=== PATIENT | female | born 1945 | race Caucasian/White ===

== ENCOUNTER 2020-03-10 08:19 | Outpatient (CLI) | payer MEDICARE, OTHER ==
[2020-03-10 16:19] LABS: BASOPHILS % (AUTO) 0.6 %; EOSINOPHILS # (AUTO) 0.1 10^3/uL (0.0-0.7); EOSINOPHILS % (AUTO) 1.9 %; HGB - HEMOGLOBIN 14.2 g/dL (12.0-16.0); LYMPHOCYTES # (AUTO) 1.5 10^3/uL (1.5-3.5); LYMPHOCYTES % (AUTO) 24.4 %; MEAN CORPUSCULAR HEMOGLOBIN 32.6 pg (27.0-31.0); MEAN CORPUSCULAR VOLUME 101.8 fL (81.0-99.0); MONOCYTES # (AUTO) 0.7 10^3/uL (0.0-1.0); MONOCYTES % (AUTO) 10.5 %; NEUTROPHILS # (AUTO) 3.9 10^3/uL (1.5-6.6); NEUTROPHILS % (AUTO) 62.3 %; PLT - PLATELET COUNT 295 10^3/uL (130-450); RED BLOOD COUNT 4.36 10^6/uL (4.20-5.40); RED CELL DISTRIBUTION WIDTH 13.3 % (12.0-15.0); WHITE BLOOD COUNT 6.3 x10^3/uL (4.8-10.8)
[2020-03-10 16:32] LABS: ALBUMIN 4.1 g/dL (3.2-5.5); ALBUMIN/GLOBULIN RATIO 1.2 (1.0-2.2); BILIRUBIN,TOTAL 0.7 mg/dL (0.2-1.0); CALCIUM 9.4 mg/dL (8.5-10.3); CREATININE 0.8 mg/dL (0.4-1.0); TOTAL PROTEIN 7.4 g/dL (6.7-8.2)
[2020-03-10 17:32] LABS: FREE T4 (FREE THYROXINE) 0.81 ng/dL (0.58-1.64)
== END 2020-03-10 08:20 | disposition home or self-care (01) ==
LOC: LAB.S 08:19
PROVIDERS: ATTEND Registered Nurse
DX: I73.9 Peripheral vascular disease, unspecified (principal); K21.9 Gastro-esophageal reflux disease without esophagitis; I10 Essential (primary) hypertension
CPT/HCPCS: 36415; 80053; 84439; 84443; 85025

== ENCOUNTER 2020-04-19 08:03 | Outpatient (CLI) | payer MEDICARE, OTHER ==
[2020-04-19 15:05] LABS: CREATININE,URINE 223.1 mg/dL; MICROALBUM/CREATININE RATIO,UR 2.2 ug/mg (<30.0); MICROALBUMIN,URINE 0.5 mg/dL (0-300.0)
[2020-04-19 15:28] LABS: CREATININE 0.8 mg/dL (0.4-1.0)
[2020-04-19 20:26] LABS: HEMOGLOBIN A1c% 5.6 % (4.27-6.07)
[2020-04-20 11:12] LABS: HEPATITIS C ANTIBODY NON-REACTIVE (NON-REACTIVE)
== END 2020-04-19 08:04 | disposition home or self-care (01) ==
LOC: LAB.S 08:03
PROVIDERS: ATTEND Registered Nurse
DX: Z12.11 Encounter for screening for malignant neoplasm of colon (principal); E03.9 Hypothyroidism, unspecified; R73.9 Hyperglycemia, unspecified; Z11.59 Encounter for screening for other viral diseases; Z12.31 Encounter for screening mammogram for malignant neoplasm of breast
CPT/HCPCS: 36415; 80048; 82043; 82570; 83036; 84443; 86803

== ENCOUNTER 2020-08-15 12:10 | Outpatient (CLI) | payer MEDICARE, OTHER ==
--- NOTE | 2020-08-24 09:28 | Mammography Report ---
BILATERAL DIGITAL SCREENING MAMMOGRAM 3D/2D WITH AUGMENTATION: 08/15/2020 CLINICAL: Routine screening. Routine screening. Personal history of right breast cancer. No prior exams were available for comparison. There are scattered fibroglandular elements in both br easts. Bilateral breast implants are intact. There are benign calcifications in both breasts. No significant masses, calcifications, or other findings are seen in either breast. IMPRESSION: BENIGN There is no mammographic evidence of malignancy. A 1 year screening mammogram is recommended. This exam was interpreted at Station ID: [id number]. NOTE: For mammograms, a report in lay terms will be sent to the patient. Approximately 15% of breast malignancies will not be visualized mammographically. In the management of a palpable breast mass, a negative mammogram must not discourage biopsy of a clinically suspicious lesion. Electronically Signed By: Antonio Land M.D. [facility]:08/24/2020 08:56:31 ACR BI-RADS Category 2: Benign Finding(s) 3342F PARENCHYMAL PATTERN: (A) - The breast(s) demonstrate(s) scattered fibroglandular densities. BI-RADS CATEGORY: (2) - 2 RECOMMENDATION: (ANNUAL) - Recommend routine annual screening mammography. [id number] 1 year screening LATERALITY: (B)
== END 2020-08-15 12:11 | disposition home or self-care (01) ==
LOC: DI.S 12:10
PROVIDERS: ATTEND Registered Nurse
DX: Z12.31 Encounter for screening mammogram for malignant neoplasm of breast (principal); Z85.3 Personal history of malignant neoplasm of breast

== ENCOUNTER 2021-03-31 07:49 | Outpatient (CLI) | payer MEDICARE, OTHER ==
[2021-03-31 15:41] LABS: BASOPHILS % (AUTO) 0.6 %; EOSINOPHILS # (AUTO) 0.1 10^3/uL (0.0-0.7); HCT - HEMATOCRIT 44.3 % (37.0-47.0); HGB - HEMOGLOBIN 14.4 g/dL (12.0-16.0); LYMPHOCYTES # (AUTO) 1.5 10^3/uL (1.5-3.5); LYMPHOCYTES % (AUTO) 30.6 %; MEAN CORPUSCULAR HEMOGLOBIN 33.1 pg (27.0-31.0); MEAN CORPUSCULAR HGB CONC 32.5 g/dL (32.0-36.0); MEAN CORPUSCULAR VOLUME 101.8 fL (81.0-99.0); MEAN PLATELET VOLUME 8.8 fL (7.9-10.8); MONOCYTES # (AUTO) 0.6 10^3/uL (0.0-1.0); MONOCYTES % (AUTO) 11.1 %; NEUTROPHILS # (AUTO) 2.7 10^3/uL (1.5-6.6); NEUTROPHILS % (AUTO) 55.3 %; PLT - PLATELET COUNT 274 10^3/uL (130-450); RED BLOOD COUNT 4.35 10^6/uL (4.20-5.40); WHITE BLOOD COUNT 4.9 x10^3/uL (4.8-10.8)
[2021-03-31 16:01] LABS: ALBUMIN 4.3 g/dL (3.2-5.5); ALBUMIN/GLOBULIN RATIO 1.7 (1.0-2.2); ALKALINE PHOSPHATASE 61 IU/L (42-121); ALT ALANINE AMINOTRANSFERASE 17 IU/L (10-60); AST ASPARTATE AMINOTRANSFERASE 15 IU/L (10-42); BILIRUBIN,TOTAL 0.7 mg/dL (0.2-1.0); BUN - BLOOD UREA NITROGEN 16 mg/dL (6-20); CALCIUM 9.3 mg/dL (8.5-10.3); CARBON DIOXIDE - CO2 29 mmol/L (21-32); CHLORIDE 103 mmol/L (101-111); CHOL/HDL RATIO 3.9 (<4.4); CHOLESTEROL 237 mg/dL; CREATININE 0.8 mg/dL (0.4-1.0); GFR - MDRD 70 (>89); GLUCOSE 135 mg/dL (70-100); HDL CHOLESTEROL 61 mg/dL; LDL CHOLESTEROL,CALCULATED 129 mg/dL; LDL/HDL RATIO 2.1 (<4.4); SODIUM 142 mmol/L (135-145); TOTAL PROTEIN 6.9 g/dL (6.7-8.2); TRIGLYCERIDES 235 mg/dL; VLDL CHOLESTEROL 47 mg/dL
[2021-03-31 16:08] LABS: THYROID STIMULATING HORMONE 1.14 uIU/mL (0.34-5.60)
== END 2021-03-31 07:50 | disposition home or self-care (01) ==
LOC: LAB.S 07:49
PROVIDERS: ATTEND Registered Nurse
DX: R55 Syncope and collapse (principal); R73.9 Hyperglycemia, unspecified; R00.2 Palpitations; I10 Essential (primary) hypertension; E03.9 Hypothyroidism, unspecified
CPT/HCPCS: 36415; 80053; 80061; 83721; 84443; 85025

== ENCOUNTER 2021-04-14 09:38 | Outpatient (CLI) | payer MEDICARE, OTHER ==
--- NOTE | 2021-04-14 12:43 | XRAY Report ---
PROCEDURE: Chest 2 View X-Ray INDICATIONS: NEAR SYNCOPE, PALPITATIONS, RECURRENT TECHNIQUE: 2 view(s) of the chest. COMPARISON: None. FINDINGS: Surgical changes and devices: None. Lungs and pleura: No pleural effusions or pneumothorax. Lungs are clear. Mediastinum: Mediastinal contours are normal. Heart size is normal. Bones and chest wall: No suspicious bony abnormalities. Soft tissues appear unremarkable. IMPRESSION: No acute cardiopulmonary disease. Reviewed by: Ricki Brown MD on 04/14/2021 12:42 PM PST Approved by: Ricki Brown MD on 04/14/2021 12:42 PM [facility] Station ID: [id number]
== END 2021-04-14 09:39 | disposition home or self-care (01) ==
LOC: DI.S 09:38
PROVIDERS: ATTEND Registered Nurse
DX: R55 Syncope and collapse (principal); R00.2 Palpitations

== ENCOUNTER 2021-07-19 09:05 | Outpatient (CLI) | payer MEDICARE ==
[2021-07-19 16:22] LABS: ALKALINE PHOSPHATASE 65 IU/L (42-121); ALT ALANINE AMINOTRANSFERASE 18 IU/L (10-60); AST ASPARTATE AMINOTRANSFERASE 16 IU/L (10-42); BILIRUBIN,TOTAL 0.6 mg/dL (0.2-1.0); CHOL/HDL RATIO 2.4 (<4.4); CHOLESTEROL 157 mg/dL; HDL CHOLESTEROL 65 mg/dL; LDL CHOLESTEROL,CALCULATED 53 mg/dL; LDL/HDL RATIO 0.8 (<4.4); TOTAL PROTEIN 6.6 g/dL (6.7-8.2); TRIGLYCERIDES 193 mg/dL; VLDL CHOLESTEROL 39 mg/dL
[2021-07-19 16:29] LABS: BILIRUBIN,DIRECT < 0.1 mg/dL (0.1-0.5)
== END 2021-07-19 09:06 | disposition home or self-care (01) ==
LOC: LAB.S 09:05
PROVIDERS: ATTEND Internal Medicine Cardiovascular Disease
DX: E78.5 Hyperlipidemia, unspecified (principal)
CPT/HCPCS: 36415; 80061; 80076; 83721

== ENCOUNTER 2021-08-13 09:24 | Outpatient (CLI) | payer MEDICARE | END 2021-08-13 09:25 | disposition home or self-care (01) | LOC: LAB.S 09:24 | PROVIDERS: ATTEND Internal Medicine Cardiovascular Disease | DX: Z53.9 Procedure and treatment not carried out, unspecified reason (principal) ==

== ENCOUNTER 2021-08-15 08:17 | Outpatient (CLI) | payer MEDICARE ==
[2021-08-15 15:48] LABS: CHOL/HDL RATIO 2.7 (<4.4); CHOLESTEROL 164 mg/dL; HDL CHOLESTEROL 61 mg/dL; LDL CHOLESTEROL,CALCULATED 66 mg/dL; LDL/HDL RATIO 1.1 (<4.4); TRIGLYCERIDES 186 mg/dL; VLDL CHOLESTEROL 37 mg/dL
== END 2021-08-15 08:18 | disposition home or self-care (01) ==
LOC: LAB.S 08:17
PROVIDERS: ATTEND Internal Medicine Cardiovascular Disease
DX: E78.5 Hyperlipidemia, unspecified (principal)
CPT/HCPCS: 36415; 80061; 83721

== ENCOUNTER 2021-09-22 07:55 | Outpatient (CLI) | payer MEDICARE ==
[2021-09-22 15:48] LABS: CALCIUM 9.2 mg/dL (8.5-10.3); CREATININE 0.7 mg/dL (0.4-1.0); POTASSIUM 4.5 mmol/L (3.5-5.0)
== END 2021-09-22 07:56 | disposition home or self-care (01) ==
LOC: LAB.S 07:55
PROVIDERS: ATTEND Physician Assistant Medical
DX: I10 Essential (primary) hypertension (principal)
CPT/HCPCS: 36415; 80048

== ENCOUNTER 2022-04-06 09:36 | Outpatient (CLI) | payer MEDICARE ==
[2022-04-06 15:09] LABS: CALCIUM 8.9 mg/dL (8.5-10.3); CREATININE 0.7 mg/dL (0.4-1.0); POTASSIUM 4.1 mmol/L (3.5-5.0)
== END 2022-04-06 09:37 | disposition home or self-care (01) ==
LOC: LAB.S 09:36
PROVIDERS: ATTEND Internal Medicine Cardiovascular Disease
DX: I10 Essential (primary) hypertension (principal)
CPT/HCPCS: 36415; 80048

== ENCOUNTER 2022-05-31 09:04 | Outpatient (CLI) | payer MEDICARE ==
[2022-05-31 17:01] LABS: BASOPHILS # (AUTO) 0.1 10^3/uL (0.0-0.1); BASOPHILS % (AUTO) 0.8 %; EOSINOPHILS # (AUTO) 0.1 10^3/uL (0.0-0.7); EOSINOPHILS % (AUTO) 1.2 %; HCT - HEMATOCRIT 41.6 % (37.0-47.0); HGB - HEMOGLOBIN 13.3 g/dL (12.0-16.0); LYMPHOCYTES # (AUTO) 1.7 10^3/uL (1.5-3.5); MEAN CORPUSCULAR HEMOGLOBIN 32.4 pg (27.0-31.0); MEAN CORPUSCULAR VOLUME 101.2 fL (81.0-99.0); MONOCYTES # (AUTO) 0.7 10^3/uL (0.0-1.0); MONOCYTES % (AUTO) 11.1 %; NEUTROPHILS # (AUTO) 3.4 10^3/uL (1.5-6.6); NEUTROPHILS % (AUTO) 57.6 %; PLT - PLATELET COUNT 257 10^3/uL (130-450); RED BLOOD COUNT 4.11 10^6/uL (4.20-5.40); RED CELL DISTRIBUTION WIDTH 13.1 % (12.0-15.0); WHITE BLOOD COUNT 5.9 x10^3/uL (4.8-10.8)
[2022-05-31 17:17] LABS: ALBUMIN 3.8 g/dL (3.2-5.5); ALBUMIN/GLOBULIN RATIO 1.4 (1.0-2.2); BILIRUBIN,TOTAL 0.5 mg/dL (0.2-1.0); CALCIUM 8.9 mg/dL (8.5-10.3); CREATININE 0.7 mg/dL (0.4-1.0); POTASSIUM 4.3 mmol/L (3.5-5.0); TOTAL PROTEIN 6.5 g/dL (6.7-8.2)
[2022-05-31 17:34] LABS: THYROID STIMULATING HORMONE 1.06 uIU/mL (0.34-5.60)
== END 2022-05-31 09:05 | disposition home or self-care (01) ==
LOC: LAB.S 09:04
PROVIDERS: ATTEND Registered Nurse
DX: I10 Essential (primary) hypertension (principal); R73.9 Hyperglycemia, unspecified; E03.9 Hypothyroidism, unspecified
CPT/HCPCS: 36415; 80053; 84443; 85025

== ENCOUNTER 2022-09-15 07:21 | Day surgery (SDC) | payer MEDICARE ==
[2022-09-15] MEDS ORDERED: LACTATED RINGERS 1,000 ML IV ONE ×2 (07:25→10:07)
--- NOTE | 2022-09-15 08:22 | ANESTHESIA ---
Pre-Anesthesia VS, & Labs - Diagnosis hx of ulcer, change in bowel habits - Procedure EGD, colonoscopy Vital Signs: Temp Pulse Resp BP Pulse Ox O2 Flow Rate 36.3 C L 94 16 134/79 H 92 09/15/22 07:34 09/15/22 07:34 09/15/22 07:34 09/15/22 07:34 09/15/22 07:34 Height: 5 ft 7 in Weight (kg): 65.7 kg Body Mass Index: 22.6 BMI Classification: Normal - NPO >8 hours - Is Patient ?: No - Lab Results Current Lab Results: Laboratory Tests 09/15/22 07:43: POC Whole Bld Glucose 117 H Home Medications and Allergies Home Medications: Ambulatory Orders Aspirin [[place] Aspirin] 81 mg PO DAILY 09/14/22 Atorvastatin [Lipitor] 20 mg ORAL DAILY 09/14/22 Carvedilol [Coreg] 12.5 mg PO DAILY 09/14/22 Levothyroxine [Synthroid] 112 mcg PO DAILY 09/14/22 Omeprazole Magnesium 20 mg PO DAILY 09/14/22 Valsartan [Diovan] 80 mg PO DAILY 09/14/22 amLODIPine [Norvasc] 5 mg PO DAILY 09/14/22 metFORMIN [Glucophage] 500 mg PO DAILY 09/14/22 Aspirin [[place] Aspirin] 81 mg PO DAILY 09/14/22 Atorvastatin [Lipitor] 20 mg ORAL DAILY 09/14/22 Carvedilol [Coreg] 12.5 mg PO DAILY 09/14/22 Levothyroxine [Synthroid] 112 mcg PO DAILY 09/14/22 Omeprazole Magnesium 20 mg PO DAILY 09/14/22 Valsartan [Diovan] 80 mg PO DAILY 09/14/22 amLODIPine [Norvasc] 5 mg PO DAILY 09/14/22 metFORMIN [Glucophage] 500 mg PO DAILY 09/14/22 Allergies/Adverse Reactions: Allergies Allergy/AdvReac Type Severity Reaction Status Date / Time celecoxib [From Celebrex] Allergy Hives Verified 09/14/22 11:56 Anes History & Medical History - Anesthetic History Anesthesia Complications: reports: No previous complications Family history of Anesthesia Complications: Denies Family history of Malignant Hyperthermia: Denies - Medical History Cardiovascular: reports: Hypertension, High cholesterol Pulmonary: reports: Emphysema Gastrointestinal: reports: GERD, Ulcers Urinary: reports: None Musculoskeletal: reports: Chronic back pain Endocrine/Autoimmune: reports: Type 2 diabetes, HyPOthyroidism Skin: reports: None - Surgical History General: reports: Appendectomy, Other Eyes Ears Nose Throat (EENT): reports: Tonsil/Adenoidectomy Gynecologic: reports: Hysterectomy, Mastectomy Orthopedic: reports: Arthroscopic surgery Exam General: Alert, Oriented x3, Cooperative Dental: WNL Mouth Openin Fingerbreadth Neck Mobility: Normal Mallampati classification: II Thyromental Distance: 4-6 cm Respiratory: Lungs clear Cardiovascular: Regular rate Plan Anesthesia Type: General, Total IV Consent for Procedure(s) Verified and Reviewed: Yes Code Status: Attempt Resuscitation ASA classification: 3-Severe systemic disease Is this case an emergency?: No
[2022-09-15] MEDS ORDERED: PROPOFOL 200 MG/20 ML VIAL IVP ONE (08:49)
[2022-09-15] MEDS ORDERED: PROPOFOL 500 MG/50 ML 500 MG/50 ML VIAL ONE (08:49)
[2022-09-15] MEDS ORDERED: LIDOCAINE-MPF 2% 5 ML VIAL ONE (08:56)
--- NOTE | 2022-09-15 09:06 | HISTORY & PHYSICAL EXAMINATION ---
Chief Complaint - Chief Complaint Chief Complaint: here for endoscopies History of Present Illness - History Obtained From Records Reviewed: yes History obtained from: pt Exam Limitations: none - History of Present Illness HPI Comment/Other: history pud and chronic dyspepsia. 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 HEENT: reports: Tonsil/Adenoidectomy Meds/Allgy - Home Medications Home Medications: Ambulatory Orders Medication Instructions Recorded Confirmed Aspirin [[place] Aspirin] 81 mg PO DAILY 09/14/22 09/14/22 Atorvastatin [Lipitor] 20 mg ORAL DAILY 09/14/22 09/15/22 Carvedilol [Coreg] 12.5 mg PO DAILY 09/14/22 09/14/22 Levothyroxine [Synthroid] 112 mcg PO DAILY 09/14/22 09/14/22 Omeprazole Magnesium 20 mg PO DAILY 09/14/22 09/14/22 Valsartan [Diovan] 80 mg PO DAILY 09/14/22 09/14/22 amLODIPine [Norvasc] 5 mg PO DAILY 09/14/22 09/14/22 metFORMIN [Glucophage] 500 mg PO DAILY 09/14/22 09/15/22 - Allergies Allergies/Adverse Reactions: Allergies Allergy/AdvReac Type Severity Reaction Status Date / Time celecoxib [From Celebrex] Allergy Hives Verified 09/14/22 11:56 Review of Systems - Other Findings Other Findings: 10 pt ros as above otherwise unremarkable Exam - Vital Signs Reviewed Vital Signs: Yes Vital Signs: Vital Signs x48h Temp Pulse Resp BP Pulse Ox 09/15/22 07:34 36.3 C L 94 16 134/79 H 92 - Physical Exam General Appearance: positive: No acute distress, Alert Eyes Bilateral: positive: PERRL, EOMI ENT: positive: No signs of dehydration Neck: positive: No JVD, Trachea midline Respiratory: positive: No respiratory distress, Breath sounds nml Cardiovascular: positive: Regular rate & rhythm Abdomen: positive: Other (changes of tram flap. no hernia) Neurologic/Psychiatric: positive: Oriented x3 Conclusion/Plan - Problem List (1) Abnormal stool test Conclusion/Plan: posititive cologuard and irregular bowel habits chronic dyspepsia. plan egd and colonoscopy with biopsies. parq held and consent obtained
--- NOTE | 2022-09-15 10:35 | ANESTHESIA POST OP EVALUATION ---
Anesthesia Post Eval - Post Anesthesia Eval Vitals: Last Vital Signs Temp 36.2 C L 09/15/22 10:18 Pulse 91 09/15/22 10:33 Resp 18 09/15/22 10:33 BP 143/97 H 09/15/22 10:33 Pulse Ox 95 09/15/22 10:20 O2 Flow Rate CV Function Including HR & BP: Stable Pain Control: Satisfactory Nausea & Vomiting: Negative Mental Status: Baseline Respiratory Status: Airway Patent Hydration Status: Satisfactory Anesthesia Complications: None
[2022-09-15 10:57] VITALS: BP 137/85
== END 2022-09-15 07:22 | disposition home or self-care (01) ==
LOC: SDS 07:21
PROVIDERS: ATTEND Surgery
PROC: 0DB68ZX Excision of Stomach, Via Natural or Artificial Opening Endoscopic, Diagnostic (ICD-10-PCS; 2022-09-15)
PROC: 0DBN8ZX Excision of Sigmoid Colon, Via Natural or Artificial Opening Endoscopic, Diagnostic (ICD-10-PCS; principal; 2022-09-15 08:45)
PROC: 0DB58ZX Excision of Esophagus, Via Natural or Artificial Opening Endoscopic, Diagnostic (ICD-10-PCS; 2022-09-15 08:45)
DX: C19 Malignant neoplasm of rectosigmoid junction (principal); R19.4 Change in bowel habit; R10.13 Epigastric pain; K21.9 Gastro-esophageal reflux disease without esophagitis; E11.9 Type 2 diabetes mellitus without complications; J43.9 Emphysema, unspecified; Z87.11 Personal history of peptic ulcer disease; Z79.84 Long term (current) use of oral hypoglycemic drugs
CPT/HCPCS: 43239; 45331; J7120

== ENCOUNTER 2022-10-03 13:50 | Outpatient (CLI) | payer MEDICARE ==
[2022-10-03] MEDS ORDERED: DIATR MEGLU/DIATRIZOATE SODIUM 120 ML BOTTLE ONE (14:12)
[2022-10-03] MEDS ORDERED: iohexoL-300 100 ML VIAL ONE (14:12)
[2022-10-03 14:16] LABS: CREATININE 0.6 mg/dL (0.4-1.0)
[2022-10-03] MEDS ORDERED: iohexoL-300 100 ML VIAL IVP ONE (16:37)
[2022-10-03] MEDS ORDERED: DIATRIZOATE MEGLU/DIATRIZO SOD 30 ML BOTTLE PO ONE (16:37)
--- NOTE | 2022-10-03 17:13 | CT Report ---
PROCEDURE: ABDOMEN/PELVIS W INDICATIONS: COLON CA CONTRAST: 100mL Omni 300 TECHNIQUE: After the administration of oral and intravenous contrast, 5 mm thick sections acquired from the diap hragms to the symphysis. 5 mm thick coronal and sagittal reformats were acquired. For radiation dos e reduction, the following was used: automated exposure control, adjustment of mA and/or kV accordin g to patient size. COMPARISON: None FINDINGS: Image quality: Excellent. Lung bases and heart: Moderate centrilobular emphysema. No suspicious nodules. Liver: 1.9 cm hyperattenuating lesion in segment 8/4 A of the liver. Gallbladder and biliary tree: No radiopaque stones or wall thickening. No biliary dilation. Spleen: No splenomegaly. Pancreas: No pancreatic ductal dilation. Adrenals: No adrenal nodule. Kidneys and ureters: No hydronephrosis. No renal cystic lesion which requires follow up. No solid mas s. Punctate, nonobstructing right-sided stone. Partial duplex right-sided renal collecting system. Bowel and peritoneum: No bowel distension. No pathologic free fluid. No solid colonic mass identified . Lymph nodes: No central or retroperitoneal adenopathy. Vessels: No infrarenal aortic aneurysm. PELVIS Reproductive organs: Unremarkable. Bladder: No wall thickness, accounting for underdistension. Pelvic lymph nodes: No pelvic adenopathy by size criteria. Bones: No aggressive osseous abnormality. Bilateral sacroiliitis. Other: No significant ventral or inguinal hernia. IMPRESSION: No solid colonic mass identified. No adenopathy. Hyperattenuating lesion in the liver measuring 1.9 cm. Differential includes hemangioma liver mass. R ecommend MRI or CT (liver mass. Cough] for further characterization. Bilateral sacroiliitis. Reviewed by: Philip Newman on 10/03/2022 5:12 PM PDT Approved by: Philip Newman on 10/03/2022 5:12 PM PDT Station ID: [id number]
== END 2022-10-03 13:51 | disposition home or self-care (01) ==
LOC: LAB 13:50
PROVIDERS: ATTEND Surgery
DX: C18.7 Malignant neoplasm of sigmoid colon (principal); R93.2 Abnormal findings on diagnostic imaging of liver and biliary tract; M46.1 Sacroiliitis, not elsewhere classified
CPT/HCPCS: 36415; 74177; 82565; Q9963; Q9967

== ENCOUNTER 2022-12-07 13:03 | Emergency (ER) | payer MEDICARE ==
[2022-12-07] MEDS ORDERED: LIDOCAINE PATCH 5% TOP STA (13:37)
--- NOTE | 2022-12-07 14:30 | CT Report ---
PROCEDURE: CERVICAL SPINE WO INDICATIONS: pain after prolonged surgery TECHNIQUE: Noncontrast 3 mm thick sections acquired from the skull base to the T4 level. Sagittal and coronal r eformats were then constructed. For radiation dose reduction, the following was used: automated exp osure control, adjustment of mA and/or kV according to patient size. COMPARISON: None. FINDINGS: Image quality: Excellent. Bones: No fractures or dislocations. Visualized superior ribs are intact. Cervical spondylosis. Mul tilevel bilateral facet arthropathy, left greater than right. Multilevel uncovertebral joint hypertro phy. Significant bilateral foraminal narrowing present, with bony foraminal narrowing noted at C3-C4, C4-C5, C5-C6, and C6-C7. Question canal stenosis at C5-C6 and C6-C7. Soft tissues: Prevertebral soft tissues are normal in thickness. No paravertebral hematomas. No ap ical pneumothoraces. Severe emphysematous change. IMPRESSION: 1. Acute cervical fracture or dislocation. 2. Cervical spondylosis with multilevel bilateral bony foraminal narrowing. There may be canal stenos is at C5-C6 and C6-C7. Reviewed by: Prosper Singh MD on 12/07/2022 2:29 PM PDT Approved by: Prosper Singh MD on 12/07/2022 2:29 PM PDT Station ID: [id number]
--- NOTE | 2022-12-07 14:59 | ED Physician Documentation ---
PD HPI NECK PAIN - Stated complaint Stated Complaint: NECK PX - Chief complaint Chief Complaint: General - History obtained from History obtained from: Patient, Family - Additional information Additional information: Patient is a 77-year-old female presenting for evaluation of neck pain that is been present for 1 week. Patient states in the past she has had intermittent episodes of pain in her neck that she relates to a possible sports injury. 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 However after that injury she did not receive any treatment and does not recall any specific pain or need to limit her activity for any period of time to recuperate. She has not had prior imaging of her neck other than that a chiropractor for years ago. She has not had any recent neck manipulations. She was admitted to [facility] last week for colon resection related to colon cancer and had surgery. She reports after waking up from the surgery that she had this pain in the left paracervical region that she says comes periodically and is worse with certain movements. She states that her pain in regards to her Recent surgery has been doing well that she has not been taking any pain medications for her neck pain either. She has no radiation of the pain to her chest, arm, lower in her back, head. She denies numbness or weakness in her extremities. She denies fevers. She does not take a blood thinner.She is on aspirin.She called her PCP today who was not able to accommodate her and thus presented to the emergency department for evaluation. Review of Systems Constitutional: denies: Fever Cardiac: denies: Chest pain / pressure Respiratory: denies: Dyspnea GI: denies: Abdominal Pain Musculoskeletal: reports: Neck pain. 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 HEENT: Tonsil/Adenoidectomy - Present Medications Home Medications: Ambulatory Orders Medication Instructions Recorded Confirmed Aspirin [[place] Aspirin] 81 mg PO DAILY 09/14/22 09/14/22 Atorvastatin [Lipitor] 20 mg ORAL DAILY 09/14/22 09/15/22 Carvedilol [Coreg] 12.5 mg PO DAILY 09/14/22 09/14/22 Levothyroxine [Synthroid] 112 mcg PO DAILY 09/14/22 09/14/22 Omeprazole Magnesium 20 mg PO DAILY 09/14/22 09/14/22 Valsartan [Diovan] 80 mg PO DAILY 09/14/22 09/14/22 amLODIPine [Norvasc] 5 mg PO DAILY 09/14/22 09/14/22 metFORMIN [Glucophage] 500 mg PO DAILY 09/14/22 09/15/22 Lidocaine Patch 5% [Lidoderm Patch] 1 patch TOP DAILY PRN #10 patch 12/07/22 - Allergies Allergies/Adverse Reactions: Allergies Allergy/AdvReac Type Severity Reaction Status Date / Time celecoxib [From Celebrex] Allergy Hives Verified 12/07/22 13:14 PD ED PE NORMAL - General General: Alert and oriented X 3, No acute distress, Well developed/nourished - HEENT HEENT: Atraumatic - Neck Neck: Supple, no meningeal sign, No bony TTP - Cardiac Cardiac: RRR, No murmur - Respiratory Respiratory: No respiratory distress, Clear bilaterally - Abdomen Abdomen: Normal bowel sounds, Soft, Non tender, Non distended, Other (+ostomy, appears well perfused) - Derm Derm: Warm and dry - Extremities Extremities: No deformity, Normal ROM s pain, Other (Normal strength with shoulder extension, arm flexion and extension, wrist extension and hand grasp) - Neuro Neuro: Alert and oriented X 3, No motor deficit, No sensory deficit, Normal speech Results - Vitals Vitals: Vital Signs - 24 hr 12/07/22 12/07/22 12/07/22 13:10 13:14 15:01 Temperature 36.0 C L 36.5 C 36.5 C Heart Rate 107 H 107 H 88 Respiratory 16 16 16 Rate Blood Pressure 123/67 123/67 120/68 O2 Saturation 95 95 96 Oxygen O2 Source Room air PD Medical Decision Making - ED course Complexity details: reviewed results, re-evaluated patient, d/w patient ED course: Patient presenting for evaluation of atraumatic neck pain. Patient reports having had neck pains in the past but this has been worse over the past 1 week since she was hospitalized at [place] for major abdominal surgery. Her vital signs are stable. Her neuro exam is normal without signs of cord Compromise. Good pulses bilaterally.She has no midline tenderness. No fever. No symptoms to suggest meningitis or subarachnoid hemorrhage. She has good range of motion. She reports the pain is intermittent and comes and jolts. Patient is requesting an x-ray or MRI. Based on her exam today I do not think she meets criteria for an emergent MRI. Discussed that a CT may be more helpful than an x-ray which she is agreeable to. CT C-spine was obtained and reviewed. I do not see any fracture. She does have significant degenerative changes. Reviewed these findings with the patient. She is agreeable to trial of lidocaine patch and anti-inflammatories as she is currently not been using anything for her symptoms. She understands the need for close follow-up with her PCP as well as concerning symptoms to return for. Departure - Departure Disposition: 01 Home, Self Care Clinical Impression: Neck pain Condition: Stable Instructions: ED Neck Pain No Trauma Prescriptions: Lidocaine Patch 5% [Lidoderm Patch] 1 patch TOP DAILY PRN #10 patch PRN Reason: pain Comments: Your CT scan does not show a broken or out of place bone. However you do have significant degenerative changes to the cervical spine. There is also questionable canal stenosis at C5-C6 and C6-C7.These findings may be playing a part into the symptoms you are experiencing. Please continue with the lidocaine patches and anti-inflammatories such as acetaminophen. I have sent a prescription to [facility] in [place] for the lidocaine patches. I would recommend close follow-up with your PCP as you may need further testing or imaging if your symptoms or not improving. Please return to the emergency department with any worsening such as weakness in your arms, fever or any new concerns. Discharge Date/Time: 12/07/22 15:01
[2022-12-07 15:08] VITALS: BP 120/68
== END 2022-12-07 15:01 | disposition home or self-care (01) ==
LOC: ED 13:03
DX: M54.2 Cervicalgia (principal); M47.812 Spondylosis without myelopathy or radiculopathy, cervical region
CPT/HCPCS: 72125; 99284; A9270

== ENCOUNTER 2023-03-09 10:47 | Outpatient (CLI) | payer MEDICARE ==
[2023-03-09 14:22] LABS: BASOPHILS % (AUTO) 0.5 %; EOSINOPHILS # (AUTO) 0.1 10^3/uL (0.0-0.7); EOSINOPHILS % (AUTO) 0.9 %; HCT - HEMATOCRIT 42.1 % (37.0-47.0); HGB - HEMOGLOBIN 13.4 g/dL (12.0-16.0); LYMPHOCYTES # (AUTO) 1.2 10^3/uL (1.5-3.5); LYMPHOCYTES % (AUTO) 22.1 %; MEAN CORPUSCULAR HEMOGLOBIN 31.1 pg (27.0-31.0); MEAN CORPUSCULAR HGB CONC 31.8 g/dL (32.0-36.0); MEAN CORPUSCULAR VOLUME 97.7 fL (81.0-99.0); MEAN PLATELET VOLUME 8.8 fL (7.9-10.8); MONOCYTES # (AUTO) 0.7 10^3/uL (0.0-1.0); MONOCYTES % (AUTO) 12.6 %; NEUTROPHILS # (AUTO) 3.4 10^3/uL (1.5-6.6); PLT - PLATELET COUNT 319 10^3/uL (130-450); RED BLOOD COUNT 4.31 10^6/uL (4.20-5.40); RED CELL DISTRIBUTION WIDTH 13.5 % (12.0-15.0); WHITE BLOOD COUNT 5.5 x10^3/uL (4.8-10.8)
[2023-03-09 16:43] LABS: ALBUMIN 4.2 g/dL (3.2-5.5); ALBUMIN/GLOBULIN RATIO 1.7 (1.0-2.2); ALKALINE PHOSPHATASE 117 IU/L (42-121); ALT ALANINE AMINOTRANSFERASE 52 IU/L (10-60); AST ASPARTATE AMINOTRANSFERASE 29 IU/L (10-42); BILIRUBIN,TOTAL 0.5 mg/dL (0.2-1.0); BUN - BLOOD UREA NITROGEN 13 mg/dL (6-20); CALCIUM 9.4 mg/dL (8.5-10.3); CARBON DIOXIDE - CO2 32 mmol/L (21-32); CHLORIDE 101 mmol/L (101-111); CHOL/HDL RATIO 2.4 (<4.4); CHOLESTEROL 124 mg/dL; CREATININE 0.7 mg/dL (0.6-1.3); GFR - MDRD 82 (>89); GLUCOSE 106 mg/dL (74-104); HDL CHOLESTEROL 51 mg/dL; LDL CHOLESTEROL,CALCULATED 25 mg/dL; LDL/HDL RATIO 0.5 (<4.4); POTASSIUM 4.5 mmol/L (3.5-4.5); SODIUM 139 mmol/L (135-145); TOTAL PROTEIN 6.7 g/dL (6.4-8.9); TRIGLYCERIDES 238 mg/dL (48-352); VLDL CHOLESTEROL 48 mg/dL
[2023-03-09 17:01] LABS: THYROID STIMULATING HORMONE 0.79 uIU/mL (0.34-5.60)
== END 2023-03-09 10:48 | disposition home or self-care (01) ==
LOC: LAB.S 10:47
PROVIDERS: ATTEND Registered Nurse
DX: Z13.228 Encounter for screening for other metabolic disorders (principal); Z13.220 Encounter for screening for lipoid disorders; Z13.29 Encounter for screening for other suspected endocrine disorder; Z13.0 Encounter for screening for diseases of the blood and blood-forming organs and certain disorders involving the immune mechanism
CPT/HCPCS: 36415; 80053; 80061; 83721; 84443; 85025

== ENCOUNTER 2023-09-03 09:22 | Outpatient (CLI) | payer MEDICARE ==
--- NOTE | 2023-09-04 10:20 | Mammography Report ---
UNILATERAL LEFT DIGITAL DIAGNOSTIC MAMMOGRAM 3D/2D WITH AUGMENTATION: 09/03/2023 CLINICAL: Mechanical complication of left breast implant. History of right breast cancer and mastecto my. Comparison is made to exam dated: 08/15/2020 mammogram - [facility]. There are scattered areas of fibroglandular density in the left breast (category b / 25%-50% glandula r tissue). A retroglandular silicone implant is present. Mild contour irregularity is seen alonog the anterolate ral aspect of the implant without extravasation of free silicone seen. Mild capsular calcifications. No significant masses, calcifications, or other findings are seen in the breast. IMPRESSION: INCOMPLETE: NEEDS ADDITIONAL IMAGING EVALUATION Mild contour irregularity is seen along the left breast implant, which may be secondary to radial fol d or rupture. No free silicone is seen. Targeted ultrasound is recommended for further evaluation and will be performed immediately following this exam. This exam was interpreted at Station ID: [id number]. NOTE: For mammograms, a report in lay terms will be sent to the patient. Approximately 15% of breast malignancies will not be visualized mammographically. In the management of a palpable breast mass, a negative mammogram must not discourage biopsy of a clinically suspicious lesion. Electronically Signed By: Robby Cohen M.D. ar/:09/03/2023 21:21:46 ACR BI-RADS Category 0: Incomplete 3340F PARENCHYMAL PATTERN: (A) - The breast(s) demonstrate(s) scattered fibroglandular densities. BI-RADS CATEGORY: (0) - 0 Ultrasound [id number] Immediate follow-up LATERALITY: (L)
--- NOTE | 2023-09-04 10:20 | Ultrasound Report ---
LIMITED ULTRASOUND OF LEFT BREAST: 09/03/2023 CLINICAL: Pt. post fall with injury to left breast and silicon implant. Assess for rupture. Comparison is made to exams dated: 08/15/2020 mammogram and 09/03/2023 mammogram - [facility]. Color flow ultrasound of the left breast 9-5 o'clock region was performed. Rosario scale images of the real-time examination were reviewed. Left breast implant demonstrates folds in the area of contour irregularity on mammography. No capsula r defect or free silicone is seen. IMPRESSION: NEGATIVE There is no sonographic evidence of malignancy. The left implant shows no evidence of rupture. Clinical correlation is recommended. If there is cont inued clinical concern or persistent symptoms, non-contrast breast MRI could be performed for further evaluation of the breast implant. Return to annual mammogram screening schedule is recommended. This exam was interpreted at Station ID: [id number]. Electronically Signed By: Robby Cohen M.D. ar/:09/04/2023 10:00:48 letter sent: No_Letter Ultrasound BI-RADS: 1 Negative BI-RADS CATEGORY: (1) - 1 Mammogram [id number] return to screening LATERALITY: (B)
== END 2023-09-03 09:23 | disposition home or self-care (01) ==
LOC: DI 09:22
PROVIDERS: ATTEND Registered Nurse
DX: T85.49XA Other mechanical complication of breast prosthesis and implant, initial encounter (principal); R92.322 Mammographic fibroglandular density, left breast; Z90.11 Acquired absence of right breast and nipple; Z85.3 Personal history of malignant neoplasm of breast